=== PATIENT | male | born 1960 | race Caucasian/White ===

== ENCOUNTER 2017-03-21 17:48 | Emergency (ER) | payer OTHER ==
--- NOTE | 2017-03-21 19:40 | EDM.PDOC ---
ED HPI GENERAL MEDICAL PROBLEM - General Chief Complaint: Cardiovascular Problem Stated Complaint: SENT BY PCP FLUID ON HEART Time Seen by Provider: 03/21/17 19:35 Source of Information: Reports: Patient History Limitations: Reports: No Limitations - History of Present Illness INITIAL COMMENTS - FREE TEXT/NARRATIVE: 56-year-old male sent across from [place] [facility] because of reported fluid buildup around his heart. 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 He is found to be hypertensive and on examination had extra fluid buildup in his scrotum. This precipitated his series of investigations which showed presumably elevated liver enzymes suggesting early cirrhosis. After that he had a CT scan which suggested that he had some fluid buildup around his heart unclear with this means pericardial effusion or pleural effusions. Today or recently had an echocardiogram and apparently it was read in [place] today as showing increased fluid around his heart and therefore he was phoned advised to come to the ED. Unfortunately none of the scans or reports came with the patient. He states he overall doesn't feel much worse than he usually does. He is a little short of breath on exertion but states he collided L5 to sleep. Smoking 3 months ago and doesn't have much of a cough anymore. Has noted that he slowly gaining weight and his pants are fitting really tight. 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 Has cut back on his alcohol use as well. Onset: Gradual Duration: Week(s): Location: Reports: Chest (Increased abdominal girth mild increased shortness of breath on exertion.), Abdomen Quality: Reports: Other (Dyspnea) Severity: Moderate (Patient is told that he has significant fluid buildup around his heart presumably pericardial effusion.) Improves with: Reports: None Worsens with: Reports: None Context: Denies: Activity, Exercise, Lifting, Sick Contact, Trauma, Other Associated Symptoms: Reports: Cough, Shortness of Breath. Denies: cough w sputum (Resume. Quit smoking 3 months ago and is getting over an upper respiratory tract infection.), Diaphoresis, Fever/Chills, Headaches, Loss of Appetite, Malaise, Nausea/Vomiting, Rash (Mild on exertion), Seizure, Syncope, Weakness Treatments CUTTER IN: Reports: Other (see below) (None.) - Related Data Allergies Allergy/AdvReac Type Severity Reaction Status Date / Time No Known Allergies Allergy Verified 03/21/17 18:15 Past Medical History HEENT History: Reports: Impaired Vision Other HEENT History: glasses for reading Cardiovascular History: Reports: Hypertension Other Endocrine/Metabolic History: on medication for thyroid he thinks Social & Family History - Tobacco Use Smoking Status *Q: Former Smoker Used Tobacco, but Quit: Yes Month Tobacco Last Used: 6 mo ago quit - Caffeine Use Caffeine Use: Reports: Coffee - Recreational Drug Use Recreational Drug Use: Yes Drug Use in Last 12 Months: No Recreational Drug Type: Reports: Marijuana/Hashish, Methamphetamine - Living Situation & Occupation Living situation: Reports: Occupation: Employed ED ROS GENERAL - Review of Systems Review Of Systems: See Below Constitutional: Reports: Malaise. Denies: Fever, Chills, Weakness (Mild), Fatigue, Decreased Appetite, Weight Loss HEENT: Reports: No Symptoms Respiratory: Reports: Shortness of Breath, Other (No orthopnea or PND). Denies : Wheezing, Pleuritic Chest Pain (On exertion), Cough, Sputum Cardiovascular: Reports: Blood Pressure Problem, Other (Has noticed some scrotal swelling over the last several months.). Denies: Chest Pain, Claudication (Recently diagnosed with high blood pressure.), Dyspnea on Exertion , Edema, Lightheadedness, Orthopnea, Palpitations, PND Endocrine: Reports: Fatigue (Fairly diagnosed with hypothyroidism and has not been compliant with medication just restarted levothyroxine.) GI/Abdominal: Reports: Abdominal Pain (No abdominal pain but increased abdominal girth to the point that his pants. He fit anymore.) : Reports: Other (Scrotal fluid retention.) Musculoskeletal: Reports: Back Pain Skin: Reports: No Symptoms Neurological: Reports: No Symptoms Psychiatric: Reports: No Symptoms ED EXAM, GENERAL - Physical Exam Exam: See Below Exam Limited By: No Limitations General Appearance: Alert, WD/WN, No Apparent Distress, Other (Appears slightly older than his stated age.) Eye Exam: Bilateral Eye: Normal Inspection Ears: Normal TMs Throat/Mouth: Normal Inspection, Normal Lips, Normal Teeth, Normal Oropharynx Head: Atraumatic, Normocephalic Neck: Normal Inspection, Supple, Non-Tender, Full Range of Motion. No: Lymphadenopathy (R) Respiratory/Chest: No Respiratory Distress, No Accessory Muscle Use, Decreased Breath Sounds (Male) Exam: Other (Patient has bilateral hydroceles. This was picked up on scrotal ultrasound. Patient appreciates that the size of these change on a day- to-day basis.). No: Scrotum Tenderness (L), Scrotum Tenderness (R) Course - Vital Signs Last Recorded V/S: Last Vital Signs Temp 36.4 C 03/21/17 18:15 Pulse 68 03/21/17 18:15 Resp 18 03/21/17 18:15 BP 159/97 H 03/21/17 18:15 Pulse Ox 98 03/21/17 18:15 - Orders/Labs/Meds Orders: Active Orders 24 hr Category Date Time Status EKG Documentation Completion [RC] STAT Care 03/21/17 19:41 Active - Radiology Interpretation Free Text/Narrative:: 56-year-old male presents to the ED at the request of his primary care em Aly. She is in receipt echocardiogram done today reported by cardiology in [facility] that he has a large pericardial effusion that is compromising right ventricular function. This is been enlarging over the last 2 weeks. Etiology of this is unclear although the patient is been also identified to be severely hypothyroid with a TSH reported to be greater than 100. He was diagnosed with hypothyroidism sometimes ago was placed on supplement therapy which he took for. Time until the prescription ran out and never refilled it. He reported to the clinic 2 weeks ago for a CDL examination. Was identified to bilateral hydroceles apparently CT identified a significant pericardial effusion. Was recommended that he have an echocardiogram performed it was finally done today. The echocardiogram report came back to Em Aly after hours and it was recommended that the patient seek further medical consultation. He therefore arrives here. I don't have any of his records or CTs or echoes and I will have to get these reports. - Re-Assessments/Exams Free Text/Narrative Re-Assessment/Exam: 03/21/17 20:00 I have received the records and they indicate that he does have a small to moderate-sized pericardial effusion which is intermittently compromising right ventricular filling pressures. It is recommended therefore that he come down to send for for possible removal of fluid. The lab work also suggest that he is extremely hypothyroid with a TSH of greater than 100. This likely is the cause of his fluid retention and pericardial effusion. Therefore he may benefit from emergent replacement of thyroid hormone intravenously. I will discuss case with hospitalist in [facility] in [place]. 03/21/17 20:46 I have spoken with Dr. Dorsey who happened to be the music adapter who read the echocardiogram earlier today. She advised that the patient come down to [place] for admission. Dr. Patel -- the hospitalist on-call and they will discuss the case with him and tentatively he will be doing the admission. I will send along all of the records that I have from [place]. Departure - Departure Time of Disposition: 20:46 Disposition: DC/Tfer to [facility] Reason for Transfer *Q: Other Condition: Serious Clinical Impression: Noninflammatory pericardial effusion, Severe hypothyroidism Referrals: Dior Aly, [employer] [Primary Care Provider] - Forms: ED Department Discharge Additional Instructions: Travel to [facility] in [facility] for tentative admission to the hospital for management of fluid buildup around your heart and severe hypothyroidism. - My Orders Last 24 Hours: My Active Orders 03/21/17 19:41 EKG Documentation Completion [RC] STAT - Assessment/Plan Last 24 Hours: My Active Orders 03/21/17 19:41 EKG Documentation Completion [RC] STAT
== END 2017-03-21 21:05 ==
LOC: JD.ED 17:48
DX: I31.3 Pericardial effusion (noninflammatory) (principal); E03.9 Hypothyroidism, unspecified; I10 Essential (primary) hypertension; Z87.891 Personal history of nicotine dependence
CPT/HCPCS: 93005; 99285; 99285-25